=== PATIENT | female | born 1995 | race Caucasian/White ===

== ENCOUNTER 2024-04-06 21:19 | Emergency (ER) | payer BC ==
[2024-04-06] MEDS ORDERED: Sodium Chloride 0.9% 10 ML Syringe FLUSH PRN (22:39)
[2024-04-06 22:48] LABS: HEMATOCRIT 37.2 % (37.0-47.0); HEMOGLOBIN 12.9 g/dL (12.0-16.0); MEAN CORPUSCULAR HEMOGLOBIN 30.2 pg (27.0-34.0); MEAN CORPUSCULAR HGB CONC 34.7 g/dL (33.0-35.0); MEAN CORPUSCULAR VOLUME 87.1 fL (80-100); PLATELET COUNT,PLT 490 10^3/uL (150-450); RED BLOOD CELL COUNT 4.27 10^6/uL (4.2-5.4); WHITE BLOOD CELL COUNT,WBC 19.5 10^3/uL (5.0-10.0)
[2024-04-06] MEDS: Cyclobenzaprine 10 MG Tab PO ONE (22:50)
[2024-04-06] MEDS: Lactated Ringers 1,000 ML IV ONE (22:50)
[2024-04-06] MEDS: Ketorolac 30 MG/ML SDV IVPUSH ONE (22:50)
[2024-04-06 22:54] LABS: BASOPHILS PERCENT AUTO 0.1 % (0.0-1.0); EOSINOPHILS PERCENT AUTO 3.2 % (1.0-3.0); LYMPHOCYTES PERCENT AUTO 6.4 % (20.5-50.1); MONOCYTES PERCENT AUTO 22.9 % (2-8); NEUTROPHILS PERCENT AUTO 67.4 % (42.2-75.2)
[2024-04-06 23:08] LABS: ALBUMIN 1.9 g/dL (3.4-5.0); ANION GAP 11.2 mEq/L (7-13); BILIRUBIN TOTAL 0.7 mg/dL (0.2-1.0); BUN/CREATININE RATIO 8.7 (No establ ref range); CALCIUM 8.1 mg/dL (8.5-10.1); CREATININE 0.92 mg/dL (0.55-1.02); EST CRCL DRUG DOSING (CG) 97.57 mL/min; MAGNESIUM 2.1 mg/dL (1.8-2.4); POTASSIUM,K 3.2 mmol/L (3.5-5.1); PROTEIN TOTAL,TP 6.2 g/dL (6.4-8.2)
[2024-04-06 23:09] LABS: A/G RATIO 0.44
[2024-04-06 23:19] LABS: BAND PERCENT MAN 17 %; EOSINOPHILS PERCENT MAN 5 % (1-3); LYMPHOCYTES PERCENT MAN 10 % (20-50); MONOCYTES PERCENT MAN 28 % (2-8); SEG NEUTROPHILS PERCENT MAN 40 % (42-75)
[2024-04-06] MEDS: Take Home: Cyclobenzaprine 10 MG Tab, 4 Tab Pack PO ONE (23:33)
[2024-04-06] MEDS: Potassium Chloride 10 MEQ Tab.ER PO ONE (23:41)
== END 2024-04-07 00:28 | disposition home or self-care (01) ==
LOC: DL.ED 21:19
DX: K52.9 Noninfective gastroenteritis and colitis, unspecified (principal); E86.0 Dehydration; E87.6 Hypokalemia; M62.838 Other muscle spasm; Z91.041 Radiographic dye allergy status
CPT/HCPCS: 36415; 80053; 83735; 85025; 96361; 96374; 99284-25; A9270-GY; J1885; J7120

== ENCOUNTER 2024-04-09 10:37 | Day surgery (SDC) | payer BC ==
[2024-04-09] MEDS: Sodium Chloride 0.9% 1,000 ML IV SCH (12:09)
== END 2024-04-09 12:00 | disposition other institution (70) ==
LOC: DL.SDS 10:37
PROVIDERS: ATTEND Internal Medicine Gastroenterology
DX: Z53.8 Procedure and treatment not carried out for other reasons (principal)
CPT/HCPCS: J7030

== ENCOUNTER 2024-04-09 12:14 | Emergency (ER) | payer BC ==
[2024-04-09] MEDS ORDERED: Sodium Chloride 0.9% 10 ML Syringe FLUSH PRN (12:21)
[2024-04-09] MEDS: Lactated Ringers 1,000 ML IV ONE (13:04)
[2024-04-09 13:14] LABS: HEMATOCRIT 40.4 % (37.0-47.0); MEAN CORPUSCULAR HEMOGLOBIN 29.7 pg (27.0-34.0); MEAN CORPUSCULAR HGB CONC 34.7 g/dL (33.0-35.0); MEAN CORPUSCULAR VOLUME 85.6 fL (80-100); PLATELET COUNT,PLT 503 10^3/uL (150-450); RED BLOOD CELL COUNT 4.72 10^6/uL (4.2-5.4); WHITE BLOOD CELL COUNT,WBC 22.2 10^3/uL (5.0-10.0)
[2024-04-09 13:17] LABS: EOSINOPHILS PERCENT AUTO 0.7 % (1.0-3.0); LYMPHOCYTES PERCENT AUTO 6.6 % (20.5-50.1); MONOCYTES PERCENT AUTO 13.6 % (2-8); NEUTROPHILS PERCENT AUTO 79.1 % (42.2-75.2)
[2024-04-09 13:33] LABS: INR 1.9 (0.9-1.2); PROTHROMBIN TIME 19.4 SEC (9.0-12.0)
[2024-04-09 13:34] LABS: ALBUMIN 1.5 g/dL (3.4-5.0); ANION GAP 21.6 mEq/L (7-13); BILIRUBIN TOTAL 0.8 mg/dL (0.2-1.0); BUN/CREATININE RATIO 18.6 (No establ ref range); C-REACTIVE PROTEIN 17.93 ng/dL (<=0.50); CALCIUM 7.9 mg/dL (8.5-10.1); CREATININE 1.02 mg/dL (0.55-1.02); MAGNESIUM 2.1 mg/dL (1.8-2.4); POTASSIUM,K 3.6 mmol/L (3.5-5.1); PROTEIN TOTAL,TP 5.6 g/dL (6.4-8.2)
[2024-04-09 13:35] LABS: A/G RATIO 0.37
[2024-04-09 13:41] LABS: LACTIC ACID 5.1 mmol/L (0.4-2.0)
[2024-04-09 13:44] LABS: BAND PERCENT MAN 4 %; EOSINOPHILS PERCENT MAN 3 % (1-3); LYMPHOCYTES PERCENT MAN 10 % (20-50); MONOCYTES PERCENT MAN 15 % (2-8); SEG NEUTROPHILS PERCENT MAN 68 % (42-75)
[2024-04-09 13:45] LABS: BURR CELLS MODERATE
[2024-04-09] MEDS: VANCOmycin 1.5 GM in Sodium Chloride 0.9% 250 ML IV ONE (14:27)
[2024-04-09] MEDS: Iopamidol 612 MG/ML 100 ML Bottle IVPUSH ONE (14:39)
[2024-04-09] MEDS: Sodium Chloride 0.9% 1,000 ML IV ONE ×2 (16:06→17:10)
[2024-04-09] MEDS: Ciprofloxacin in D5W 400 MG in Premix Bag 1 BAG IV ONE (17:19)
[2024-04-09] MEDS: metroNIDAZOLE/Normal Saline 500 MG in Premix Bag 1 BAG IV ONE (17:24)
== END 2024-04-09 17:40 ==
LOC: DL.ED 12:14
DX: A41.9 Sepsis, unspecified organism (principal); K52.9 Noninfective gastroenteritis and colitis, unspecified; Z91.041 Radiographic dye allergy status; Z79.899 Other long term (current) drug therapy
CPT/HCPCS: 36415; 74177; 80053; 82272; 82947; 83605; 83735; 84703; 85025; 85610; 85730; 86140; 86850; 86900; 86901; 87040; 93005; 93010; 96361; 96365; 96366; 96367; 99285; J0744; J1836; J7030; J7050; J7120; Q9967